=== PATIENT | female | born 1960 | race Caucasian/White ===

== ENCOUNTER 2016-12-12 08:49 | Day surgery (SDC) | payer BC ==
[2016-12-05 15:18] LABS: BASOPHILS 0.2 %; BASOPHILS ABSOLUTE 0.01 10/3/uL (0.0-0.16); EOSINOPHILS 2.3 %; EOSINOPHILS ABSOLUTE 0.15 10/3/uL (0.0-0.53); HEMATOCRIT 34.2 % (36.0-48.0); HEMOGLOBIN 11.7 g/dL (12.0-16.0); IMMATURE GRANULOCYTES 0.2 %; IMMATURE GRANULOCYTES ABSOLUTE 0.01 10/3/uL (0.0-0.11); LYMPHOCYTES 34.3 %; MEAN CORPUS HGB CONC 34.2 g/dL (32.0-36.0); MEAN PLATELET VOLUME 9.4 fL (9.2-13.0); MONOCYTES 8.9 %; MONOCYTES ABSOLUTE 0.57 10/3/uL (0.21-1.20); NEUTROPHILS 54.1 %; NEUTROPHILS ABSOLUTE 3.47 10/3/uL (2.02-8.40); PLATELET COUNT 187 10/3/uL (150-400); RBC DISTRIBUTION WIDTH 12.9 % (12.0-16.0); RED CELL COUNT 4.04 10/6/uL (4.0-5.6); WHITE BLOOD CELLS 6.4 10/3/uL (4.5-10.5)
[2016-12-05 15:19] LABS: MANUAL DIFF NO %; MEAN CORPUSCULAR VOLUME 84.7 fL (80-100)
[2016-12-05 15:26] LABS: CALCIUM, SERUM 8.8 MG/DL (8.5-10.4); CHLORIDE, SERUM 102 MMOL/L (96-112); CO2 (CARBON DIOXIDE) 34 MMOL/L (24-34); CREATININE 0.99 MG/DL (0.55-1.02); GFR AFRICAN AMERICAN 73 ML/MIN (>=60); GFR NON AFRICAN AMERICAN 63 ML/MIN (>=60); POTASSIUM, SERUM 3.3 MMOL/L (3.5-5.3); SODIUM, SERUM 140 MMOL/L (135-148)
[2016-12-05 15:28] LABS: BUN (BLOOD UREA NITROGEN) 16 MG/DL (6-23); GLUCOSE, SERUM 100 MG/DL (60-99)
[2016-12-05 15:30] LABS: PARTIAL THROMBO TIME 25.3 SEC (22.5-37.2)
[2016-12-05 15:32] LABS: INTERNATIONAL NORMAL RATI 1.1 UNITS (-); PROTIME (NOT ORD) 13.8 SEC (12.0-14.5)
[2016-12-05 16:48] LABS: PFA (COL/EPI) 151 SEC (72-180)
--- NOTE | ~2016-12-12 | OP ---
Record Of Operation [facility] [address] [place]. [address] NAME: ОЛЬГА YOUSIF : 56 STATUS : [facility]#: [id number] AGE: 56 ADM/REG DATE : 12/12/16 MR#: [id number] REPORT SERV DATE: 12/13/16 DICTATED BY: HERLINDA INMAN DATE: 12/13/16 REPORT STATUS : Draft TRANSCRIBED BY: MOISES DATE: 12/13/16 DATE OF PROCEDURE: 12/12/2016 PREOPERATIVE DIAGNOSIS: Surgical absence of the breast. POSTOPERATIVE DIAGNOSIS: Surgical absence of the breast. PROCEDURE: Bilateral tissue e business consultant exchange to definitive silicone implant. INDICATIONS AND FINDINGS OF THE PROCEDURE: This 56-year-old female presents with surgical absence of the breast bilaterally. She is appropriate for the above-described operative intervention. DETAILS OF THE PROCEDURE: The patient was brought to the operating room and after adequate sedation was achieved, she was prepped and draped in usual sterile fashion for the above- described procedure. First, our attention was turned to the right. An inframammary crease incision was made. Dissection was carried down to the level of the implant. The implant was subsequently ruptured and removed. A superior capsulotomy was then carried out. The site was checked for hemostasis. Packed with Hibiclens-soaked gauze initially and then an inferior 10-Swedish drain was placed. She was then rechecked for hemostasis. A 495 MH implant was placed into the site over the drain. Manipulated into an appropriate position and the wounds were then closed with multiple layers of Vicryl and Monocryl through to an intracuticular in the skin. Our attention was then turned contralaterally for an identical procedure. Again, inferior incision was made. Dissection carried down to the tissue e business consultant. It was ruptured and removed. A superior capsulotomy was carried out. She was checked for hemostasis, irrigated. The drain was placed and a 495 MH implant was placed into the site. This was manipulated into an appropriate position. The wounds closed with multiple layers of Vicryl and Monocryl through to an intracuticular in the skin. She was cleansed with peroxide. Light dry dressings were placed. The drains were set to suction and she was remanded to the recovery room in stable condition. SPONGE COUNTS: All sponge and needle counts were correct. EMILE/MOISES Herlinda Inman M.D. / [id number] CC: Baljinder Shearer M.D.
[~2016-12-12 08:49] MED LIST: ARIMIDEX1 PO; AT25 PO; CELEXA40 MG PO; HERCEPTIN440 MG IV; K500 PO; PCET PO; PRINZIDE1 TA1 PO; SEV VITS PO
== END 2016-12-12 14:26 | disposition home or self-care (01) ==
LOC: SDC 08:49
PROVIDERS: Surgery Surgery of the Hand
PROC: 0HHV0NZ Insertion of Tissue Expander into Bilateral Breast, Open Approach (ICD-10-PCS; principal; 2016-12-12 11:15)
DX: Z42.1 Encounter for breast reconstruction following mastectomy (principal); M54.5 Low back pain; I10 Essential (primary) hypertension; F41.9 Anxiety disorder, unspecified; Z90.13 Acquired absence of bilateral breasts and nipples; Z85.3 Personal history of malignant neoplasm of breast; Z98.890 Other specified postprocedural states
CPT/HCPCS: 80048; 85025; 85576; 85610; 85730; 93005; C1769; C1789; J0690; J2250; J2405; J3010